=== PATIENT | female | born 1970 | race Caucasian/White ===

== ENCOUNTER 2020-04-28 07:21 | Day surgery (SDC) | payer OTHER ==
[2020-04-28] MEDS: Ringers Lactate 1,000 ML IV ONE ×2 (08:24→08:50)
[2020-04-28] MEDS ORDERED: MIDAZOLAM HCL 2 MG/2 ML INJ ONE (08:42)
[2020-04-28] MEDS ORDERED: FENTANYL CITR 100 MCG/2 ML ONE ×2 (08:42→09:52)
[2020-04-28] MEDS ORDERED: ROCURONIUM 50 MG/5 ML VIAL IV ONE (08:42)
[2020-04-28] MEDS ORDERED: propofoL 200 MG/20 ML VIAL IV ONE (08:42)
[2020-04-28] MEDS ORDERED: LIDOCAINE 1% MPF 5 ML VIAL ONE (08:42)
--- NOTE | 2020-04-28 08:50 | P.HP ---
Date of Service: 04/28/20 PC: This 49-year-old female presents for a laparoscopic cholecystectomy with cholangiogram. HPC: Patient has been experiencing right upper quadrant abdominal pain, radiating into her back, for the last few months. Pain has intensified and frequency of attacks have as well. She has cholecystitis on workup. PMH: Depression, previous stroke PSHx: Previous TAHBSO, angioplasty SOC: Allergic to on those amoxicillin almonds clavulanic acid SYS REVIEW: No cough, wheeze, shortness of breath. No chest pain or palpitations. No fevers or chills. O/E awake alert vital signs are stable HEENT: Nonicteric Chest: Air entry equal bilaterally ABD: Soft nontender today LOCO: Intact DATA: Has documented cholecystitis IMPRESSION: Cholecystitis, biliary colic PLAN: I will take her the operating room for laparoscopic possible open cholecystectomy. The risks of this procedure have been discussed. The possibility of bleeding, infection, injury to bile ducts blood vessels and intestines has been described. The possible need for an open and/or further surgeries and procedures was discussed. She understands and wants to proceed.
[2020-04-28] MEDS ORDERED: LIDOCAINE 1% MPF 2 ML AMPULE ONE (09:11)
[2020-04-28] MEDS ORDERED: dexAMETHasone 10 MG/ML VIAL ONE (09:29)
[2020-04-28] MEDS ORDERED: KETOROLAC 30 MG/ML INJ ONE (09:29)
[2020-04-28] MEDS ORDERED: ONDANSETRON 4 MG/2 ML VIAL ONE ×2 (09:29→10:50)
[2020-04-28] MEDS ORDERED: NEOSTIGMINE 1 MG/ML -5 ML ONE (10:16)
[2020-04-28] MEDS ORDERED: GLYCOPYRROLATE 0.2 MG/ML SYR ONE (10:16)
[2020-04-28] MEDS ORDERED: HYDROCODONE/APAP 10/325 TAB PO PRN (10:17)
--- NOTE | 2020-04-28 10:24 | P.OP ---
Preoperative diagnosis: Cholecystitis with cholelithiasis, biliary colic Postoperative diagnosis: The same Primary procedure: Laparoscopic cholecystectomy Secondary procedure: Cholangiogram Anesthesia: General Estimated blood loss: Less than 20 cc Specimen: 1 gallbladder and contents Operative Technique: The patient was brought to the operating room placed supine on the table. After the induction of adequate general endotracheal anesthesia, the area of the abdomen was prepped with a DuraPrep solution, and draped in the usual aseptic manner. A subumbilical incision was made. This was brought down through the skin and subcutaneous tissue. The Visiport was used to enter the peritoneal cavity and create a pneumoperitoneum to approximately 12 mm of mercury. Under direct visi on a 5 mm trocar was placed in the upper midline, and 2 other 5 mm trocars on the right lateral side. The patient's head was then elevated and rolled towards the block bolter mule operator's side. We could see a chronically inflamed gallbladder. A grasper was placed on the fundus of the gallbladder. Another 1 was placed down by Armaan's pouch. Applying lateral traction we were able to dissect and expose the cystic duct and artery. The artery was dealt with 1st. It was clipped and divided in the usual manner. A clip was then placed between the gallbladder and the cystic duct. An opening was made into the cystic duct. We attempted then to pass the cholangiocath into the cystic duct. Having successfully done so, injection showed good flow of contrast into the duodenum. No filling defects were noted. The catheter was then removed. Clips were now placed on the distal portion of the cystic duct. The cystic duct was then divided. The gallbladder was now dissected free from the liver bed, placed into an Endo-Catch, and brought out through the umbilical trocar site. The gallbladder fossa was inspected to ensure adequate hemostasis. We noted a small area in the gallbladder fossa that had a small amount of bile. This was touched with electro cautery. It was irrigated with a saline solution and the irrigant aspirated from the peritoneal cavity. The umbilical trocar site was now approximated with an Endo Close and 2 absorbable sutures. The pneumoperitoneum was then collapsed, the suture tied, and raghav applied to the skin. A further 0.25% Marcaine was injected around are incision sites. At the end of the procedure the patient was in a stable condition when sent to the recovery room. Needle sponge instrument count were correct. 1 specimen was sent for histopathology. Complications: None
[2020-04-28] MEDS: HYDROMORPHONE HCL 1 MG/ML INJ ONE ×4 (10:39→10:54)
[2020-04-28] MEDS ORDERED: HYDROCODONE/APAP 10/325 TAB ONE (11:49)
--- NOTE | 2020-04-28 11:59 | RAD REPORT ---
EXAM DESCRIPTION: RAD - Cholangiogram Oper-Xray Or - 04/28/2020 11:51 am FINDINGS: There were 5 intraoperative portable C-arm views submitted from an intraoperative fluorosc opic assisted cholangiogram. Evaluation is limited when only selected images are available. Correlation is needed with findings du ring real-time assessment. Fluoro time was 0.2 minutes. Cumulative dose was 3.29 mGy.
[2020-04-28 13:01] VITALS: BP 131/66; TEMP 97.4; O2SAT 95
== END 2020-04-28 12:05 | disposition home health service (06) ==
LOC: OR 07:21
PROVIDERS: ATTEND Surgery
PROC: 0FT44ZZ Resection of Gallbladder, Percutaneous Endoscopic Approach (ICD-10-PCS; principal; 2020-04-28 08:30)
DX: K80.10 Calculus of gallbladder with chronic cholecystitis without obstruction (principal); K80.44 Calculus of bile duct with chronic cholecystitis without obstruction; Z20.822 Contact with and (suspected) exposure to COVID-19
CPT/HCPCS: 88304; 74300; 47562; U0003; J2704; J2250; J3010 ×2; J1100; J2001; J1170 ×2; J2710; J7120; J2405 ×2